=== PATIENT | female | born 1975 | race Caucasian/White ===

== ENCOUNTER 2021-06-20 09:46 | Outpatient (REF) | payer OTHER, SELFPAY ==
--- NOTE | ~2021-06-20 | XR_ITS ---
EXAMINATION: XR CHEST CLINICAL INFORMATION: Obesity COMPARISON: None TECHNIQUE: 2 views of the chest were obtained. FINDINGS: No significant abnormality is noted involving the heart, lungs, mediastinum, bony thorax or soft tissues. XR/XR chest 2V IMPRESSION: Unremarkable examination.
[2021-06-20 12:27] LABS: MANUAL DIFF FLAG NO
[2021-06-20 12:29] LABS: Basophils Percent Auto 0.4 % (0-2); Eosinophils Absolute Auto 0.2 X10*3/uL (0.0-0.4); Eosinophils Percent Auto 2.6 % (0-4); Hematocrit 34.5 % (37-47); Imm Gran Abs Auto 0.02 X10*3/uL (0.00-0.03); Imm Gran Pct Auto 0.2 % (0.0-0.4); Lymphocytes Absolute Auto 2.7 X10*3/uL (1.2-4.9); Lymphocytes Percent Auto 28.8 % (20-40); Mean Corpuscular HGB Conc 31.9 g/dl (31.0-35.0); Mean Corpuscular Hemoglobin 26.6 pg (27.0-33.0); Mean Corpuscular Volume 83.3 fL (80-98); Mean Platelet Volume 10.3 fL (9.4-12.3); Monocytes Absolute Auto 0.7 X10*3/uL (0.1-1.2); Monocytes Percent Auto 7.2 % (2-11); Neutrophils Absolute Auto 5.7 X10*3/uL (2.0-8.3); Neutrophils Percent Auto 60.8 % (45-73); Platelet Count 431 X10*3/uL (160-400); Red Blood Count 4.14 X10*6/uL (4.20-5.50); Red Cell Distribution Width 15.2 % (11.0-16.0); White Blood Count 9.4 X10*3/uL (4.8-10.8)
[2021-06-20 13:00] LABS: Alanine Aminotransferase < 6 U/L (0-31); Albumin Level 3.9 g/dL (3.5-5.0); Alkaline Phosphatase 71 U/L (39-117); Anion Gap 10 (12-20); Aspartate Amino Transferase 12 U/L (5-31); Bilirubin Total 0.3 mg/dL (0.0-1.0); Blood Urea Nitrogen 8 mg/dL (9-16); C Reactive Protein 1.08 mg/dL (< or = 0.50); Calcium 8.9 mg/dL (8.4-10.2); Carbon Dioxide 27 mmol/L (22-29); Chloride 104 mmol/L (96-108); Cholesterol 199 mg/dL; Estimated Glomerular Filt Rate > 60; Glucose Fasting 85 mg/dL (60-99); HDL Cholesterol 41 mg/dL; Iron 30 mcg/dL (30-160); LDL Cholesterol Calculated 145 mg/dl; Percent Iron Saturation 9 % (15-50); Potassium 3.9 mmol/L (3.3-5.1); Sodium 137 mmol/L (135-145); Total Iron Binding Capacity 343 mcg/dL (228-428); Total Protein 7.7 g/dL (6.5-8.0); Triglycerides 69 mg/dL; Unsaturated Iron Binding 313 ug/dL
[2021-06-20 13:02] LABS: Estimated Average Glucose 111 mg/dL; Hemoglobin A1c % 5.5 %
[2021-06-20 13:17] LABS: Ferritin 17 ng/mL (10-250); TSH reflex Free T4 3.29 uIU/mL (0.32-4.0); Vitamin D 25-OH Total 29.8 ng/mL (>30)
[2021-06-20 13:29] LABS: Folate 18.9 ng/mL (> or = 4.0); Vitamin B12 667 pg/mL (200-900)
[2021-06-21 13:05] LABS: Calcium (PTHI) 8.8 mg/dL (8.6-10.2); PTHI 50 pg/mL (14-64)
[2021-06-21 21:06] LABS: Insulin Level Total 7.1 uIU/mL
[2021-06-23 01:01] LABS: Zinc 64 mcg/dL (60-130)
[2021-06-25 10:26] LABS: Vitamin B1 6 nmol/L (8-30)
[2021-06-26 04:02] LABS: Vitamin A 34 mcg/dL (38-98)
== END 2021-06-20 09:47 | disposition home or self-care (01) ==
LOC: HO.LAB 09:46
PROVIDERS: PCP Physician Assistant; Visit Provider Physician Assistant
DX: E66.01 Morbid (severe) obesity due to excess calories (principal); Z68.41 Body mass index [BMI] 40.0-44.9, adult; G47.10 Hypersomnia, unspecified; R06.02 Shortness of breath; R06.83 Snoring; Z71.3 Dietary counseling and surveillance
CPT/HCPCS: 36415; 71046; 80053; 80061; 82306; 82607; 82728; 82746; 83036; 83525; 83540; 83970; 84425; 84443; 84590; 84630; 85025; 86140; 99202

== ENCOUNTER 2021-06-26 09:58 | Outpatient (REF) | payer OTHER, SELFPAY ==
[2021-06-27 14:37] LABS: H Pylori Breath Test DETECTED (NOT DETECTED)
== END 2021-06-26 09:59 | disposition home or self-care (01) ==
LOC: HO.LNP 09:58
PROVIDERS: Physician Assistant; PCP Physician Assistant; Visit Provider Physician Assistant
DX: E66.01 Morbid (severe) obesity due to excess calories (principal); G47.10 Hypersomnia, unspecified; R06.02 Shortness of breath; R06.83 Snoring
CPT/HCPCS: 83013; 99211

== ENCOUNTER → 2021-07-03 14:35 | Outpatient (REF) | payer OTHER, SELFPAY | LOC: HO.SL 14:35 | PROVIDERS: PCP Physician Assistant; Visit Provider Surgery | DX: G47.19 Other hypersomnia (principal) | CPT/HCPCS: 95806 ==

== ENCOUNTER → 2021-07-14 08:22 | Outpatient (BNVA) | payer OTHER, SELFPAY | PROVIDERS: Visit Provider Dietitian, Registered | DX: E66.01 Morbid (severe) obesity due to excess calories (principal); Z68.41 Body mass index [BMI] 40.0-44.9, adult; Z71.3 Dietary counseling and surveillance | CPT/HCPCS: 97802 ==

== ENCOUNTER → 2021-08-07 08:32 | Outpatient (BNVA) | payer OTHER, SELFPAY | PROVIDERS: Visit Provider Dietitian, Registered | DX: E66.01 Morbid (severe) obesity due to excess calories (principal) | CPT/HCPCS: 97803 ==

== ENCOUNTER 2021-08-09 08:29 | Outpatient (REF) | payer OTHER, SELFPAY ==
--- NOTE | ~2021-08-09 | US_ITS ---
EXAMINATION: US COMPLETE ABDOMEN WITH LIVER ELASTOGRAPHY CLINICAL INFORMATION: R06.83 - Snoring. Bariatric service evaluation. E66.01. COMPARISON: None. TECHNIQUE: Real-time imaging of the abdominal viscera. Noninvasive ultrasound liver fibrosis assessment is performed using Thelma ElastPQ point quantification shear wave elastography (pSWE) with a C5-2 MHz transducer. Multiple elastography samples are obtained. FINDINGS: PANCREAS: The visualized pancreas is normal in size and contour and echogenicity. There is no pancreatic ductal distention. There are scattered portions of the pancreas which are obscured by bowel gas and not completely imaged. ABDOMINAL AORTA: The proximal, middle, and distal aortic segments are normal in caliber. INFERIOR VENA CAVA: Visualized portions are normal. LIVER: The liver is normal in size and smooth in contour. Echogenicity is within the limits of normal. Possibility of mild hepatic steatosis cannot be excluded. There is no focal hepatic parenchymal lesion or intrahepatic ductal dilatation. The right lobe measures 12.9 cm in length. The left lobe measures 9.2 cm in length. Portal flow is towards the liver (hepatopetal). Shear wave liver elastography median stiffness is 1.43 m/s (reference: normal median stiffness is 1.3 m/s or less). IQR/median stiffness to assess sampling precision is 0.10 (reference: good quality data set is IQR/median stiffness of 0.15 or less). GALLBLADDER: Normal. The gallbladder is physiologically distended without evidence of stones, sludge, polyps, wall thickening or pericholecystic fluid. COMMON BILE DUCT: Normal in caliber measuring 0.3 cm in diameter. RIGHT KIDNEY: Normal. No hydronephrosis. No renal calculi or focal parenchymal lesions. The kidney measures 9.7 cm in maximum dimension. LEFT KIDNEY: Normal. No hydronephrosis. No renal calculi or focal parenchymal lesions. The kidney measures 10.2 cm in maximum dimension. SPLEEN: Normal. The spleen measures 7.2 cm in maximum dimension. FREE FLUID: None. US/US abdomen comp w elastography IMPRESSION: 1. Liver normal in size. No focal parenchymal lesion. 2. Liver elastography: In the absence of other known clinical signs, measurements rule out compensated advanced chronic liver disease. If there are known clinical signs, further testing may be needed for confirmation. 3. No cholelithiasis or ductal dilatation. 4. Portions of pancreas obscured by bowel gas. REFERENCE: Society of [employer]iologists in Ultrasound Liver Stiffness Thresholds (2020): LIVER STIFFNESS THRESHOLDS: *Liver Stiffness equal or less than 1.3 m/s: High probability of being normal. *Liver Stiffness less than 1.7 m/s: In the absence of other known clinical signs, rules out compensated advanced chronic liver disease. *Liver Stiffness 1.7-2.1 m/s: Suggestive of compensated advanced chronic liver disease but need further test for confirmation. *Liver Stiffness over 2.1 m/s: Rules in compensated advanced chronic liver disease. *Liver Stiffness over 2.4 m/s: Suggestive of clinically significant portal hypertension. QUALITY OF DATA SET: *IQR/Median value equal or less than 0.15 implies a quality data set. *IQR/Median value over 0.15 implies a poor quality data set. SIGNIFICANT CHANGE FROM PRIOR EXAM: Significant change if liver stiffness measurement is 10% or greater from prior exam. OTHER CONSIDERATIONS: The stage of liver fibrosis may be overestimated in the setting of acute hepatitis, liver inflammation, elevated liver function tests, hepatic vascular congestion, obstructive cholestasis, non-fasting state, and infiltrative diseases such as amyloidosis and lymphoma. In some patients with NAFLD, the liver stiffness thresholds for compensated advanced chronic liver disease may be lower. In causes other than viral hepatitis and NAFLD, liver stiffness thresholds are not well established.
--- NOTE | ~2021-08-09 | FL_ITS ---
EXAMINATION: XR GI SERIES CLINICAL INFORMATION: Snoring. Patient states dysphagia. COMPARISON: None. TECHNIQUE: Upper GI was performed using thin and thick barium and effervescent granules. FINDINGS: There is a small hiatal hernia. There is mild gastroesophageal reflux. The stomach and duodenum are normal appearing. No fold thickening, mass, ulcer or stricture is seen. FLUOROSCOPY TIME: 1.2 minutes. DOSE AREA PRODUCT: 18 Gy-cm2. SAVED FLUOROSCOPIC IMAGES: 21. FL/FL upper GI series IMPRESSION: Small hiatal hernia and mild gastroesophageal reflux.
== END 2021-08-09 08:30 | disposition home or self-care (01) ==
LOC: HO.US 08:29
PROVIDERS: PCP Physician Assistant; Visit Provider Surgery
DX: Z01.818 Encounter for other preprocedural examination (principal); E66.01 Morbid (severe) obesity due to excess calories; K21.9 Gastro-esophageal reflux disease without esophagitis; R06.83 Snoring
CPT/HCPCS: 74240; 76705; 76981

== ENCOUNTER → 2021-08-30 08:21 | Outpatient (BNVA) | payer OTHER, SELFPAY | PROVIDERS: Referring Provider Surgery; Visit Provider Dietitian, Registered ==

== ENCOUNTER → 2021-09-20 08:04 | Outpatient (BNVA) | payer OTHER, SELFPAY | PROVIDERS: Visit Provider Dietitian, Registered | DX: E66.01 Morbid (severe) obesity due to excess calories (principal) | CPT/HCPCS: 97803 ==

== ENCOUNTER 2021-09-29 13:24 | Outpatient (REF) | payer OTHER, SELFPAY ==
[2021-09-29 14:49] LABS: MANUAL DIFF FLAG NO
[2021-09-29 15:17] LABS: Basophils Percent Auto 0.3 % (0-2); Eosinophils Absolute Auto 0.3 X10*3/uL (0.0-0.4); Eosinophils Percent Auto 2.6 % (0-4); Hematocrit 36.7 % (37.0-47.0); Hemoglobin 12.2 g/dl (12.0-16.0); Imm Gran Abs Auto 0.02 X10*3/uL (0.00-0.03); Imm Gran Pct Auto 0.2 % (0.0-0.4); Lymphocytes Absolute Auto 3.1 X10*3/uL (1.2-4.9); Lymphocytes Percent Auto 26.3 % (20-40); Mean Corpuscular HGB Conc 33.2 g/dl (31.0-35.0); Mean Corpuscular Hemoglobin 26.9 pg (27.0-33.0); Mean Corpuscular Volume 80.8 fL (80.0-98.0); Mean Platelet Volume 9.4 fL (9.4-12.3); Monocytes Absolute Auto 0.8 X10*3/uL (0.1-1.2); Monocytes Percent Auto 6.7 % (2-11); Neutrophils Absolute Auto 7.4 x10*3/uL (2.0-8.3); Neutrophils Percent Auto 63.9 % (45-73); Platelet Count 504 X10*3/uL (160-400); Red Blood Count 4.54 X10*6/uL (4.20-5.50); Red Cell Distribution Width 16.1 % (11.0-16.0); White Blood Count 11.6 X10*3/uL (4.8-10.8)
[2021-09-29 15:36] LABS: Iron 32 mcg/dL (30-160); Percent Iron Saturation 8 % (15-50); Total Iron Binding Capacity 405 mcg/dL (228-428); Unsaturated Iron Binding 373 ug/dL
[2021-09-29 15:59] LABS: Ferritin 17 ng/mL (10-250)
[2021-10-04 13:41] LABS: Vitamin A 44 mcg/dL (38-98)
[2021-10-05 11:21] LABS: Vitamin B1 14 nmol/L (8-30)
== END 2021-09-29 13:25 | disposition home or self-care (01) ==
LOC: HO.LAB 13:24
PROVIDERS: Absent Provider Physician Assistant; Referring Provider Physician Assistant; Visit Provider Physician Assistant Surgical
DX: E66.9 Obesity, unspecified (principal); Z68.39 Body mass index [BMI] 39.0-39.9, adult; D64.9 Anemia, unspecified; E56.9 Vitamin deficiency, unspecified; Z71.3 Dietary counseling and surveillance
CPT/HCPCS: 36415; 82728; 83540; 84425; 84590; 85025; 99212

== ENCOUNTER → 2021-10-26 08:10 | Outpatient (BNVA) | payer OTHER, SELFPAY | PROVIDERS: PCP Physician Assistant; Referring Provider Surgery; Visit Provider Dietitian, Registered ==

== ENCOUNTER → 2021-11-02 15:21 | Outpatient (BNVA) | payer OTHER, SELFPAY | PROVIDERS: PCP Physician Assistant; Visit Provider Physician Assistant Surgical | DX: E66.9 Obesity, unspecified (principal); Z68.39 Body mass index [BMI] 39.0-39.9, adult | CPT/HCPCS: 99212 ==

== ENCOUNTER → 2021-11-08 08:21 | Outpatient (BNVA) | payer OTHER, SELFPAY | PROVIDERS: PCP Physician Assistant; Visit Provider Dietitian, Registered | DX: E66.9 Obesity, unspecified (principal) | CPT/HCPCS: 97803 ==